=== PATIENT | male | born 1985 | race Caucasian/White ===

== ENCOUNTER 2019-09-01 06:56 | Emergency (ER) | payer OTHER, SELFPAY ==
--- NOTE | ~2019-09-01 | CT_ITS ---
EXAMINATION: CT abdomen pelvis w con DATE: 09/01/2019 08:08 INDICATION: Right flank pain. TECHNIQUE: Computed tomography (CT) of the abdomen and pelvis was performed with 100 mL Omnipaque-350 intravenous contrast. Automated exposure control and iterative reconstruction technique were employe d. The dose-length product was 496.49 mGy-cm. COMPARISON: None FINDINGS: Lung bases are clear. Heart size is normal. No pericardial or pleural effusion. Liver, gallbladder, s pleen, pancreas, bilateral adrenal glands and left kidney are normal. 1 mm at least partially obstruc ting stone at the right ureterovesicular junction. There is mild right hydroureteronephrosis and luis yed right nephrogram. Bowels including the appendix are normal. No free intraperitoneal gas or fluid. Latter is normal. Left testis is retracted to the caudal aspect of the left inguinal canal. No patho logically enlarged abdominal or pelvic lymphadenopathy. Bones are unremarkable. IMPRESSION: 1. At least partially obstructing 1 mm stone at the right ureterovesicular junction with mild right h ydroureteronephrosis and delayed right nephrogram. Reviewed, dictated and finalized at location A. IMPRESSION: 1. At least partially obstructing 1 mm stone at the right ureterovesicular junc tion with mild right hydroureteronephrosis and delayed right nephrogram.
[2019-09-01 07:04] VITALS: BP 135/80; PULSE 60; RESP 16; TEMP 36.6; O2SAT 100
--- NOTE | 2019-09-01 07:18 | ED.ABDPAIN ---
HPI - Abdominal Pain General Chief Complaint: Abdominal Pain Stated Complaint: kidney stone Time Seen by Provider: 09/01/19 07:15 History of Present Illness HPI narrative: Patient presents with right flank pain for hour and a half. He was dropped off by his and children. He had a kidney stone in 2015. This is similar pain. He gauges at 9 out of 10. He has some nausea but no vomiting. He has not been sick recently. He denies fever. MD elicited complaint: flank pain Pertinent past history: kidney stones Onset (ago): hour(s) Pain Consistency: constant Location: RLQ Severity: severe Pain scale (0-10): 9 Radiation: R flank Exacerbating factors: movement Relieving factors: nothing Related Data Allergies Allergy/AdvReac Type Severity Reaction Status Date / Time bupropion [From Wellbutrin] Allergy Seizure Verified 09/01/19 07:08 tramadol Allergy Seizure Verified 09/01/19 07:08 Review of Systems Review of Systems: Narrative: CONSTITUTIONAL: Denies fever, chills, or sweats. EYES: Denies visual changes, redness, or discharge. ENT: Denies rhinorrhea, congestion, sore throat, or otalgia. CARDIOVASCULAR: Denies chest pain, palpitations, or edema. RESPIRATORY: Denies cough or dyspnea. GASTROINTESTINAL: He has abdominal pain, nausea, but no vomiting, or diarrhea. GENITOURINARY: Denies dysuria or hematuria. SKIN: Denies rash or itching. MUSCULOSKELETAL: Denies back pain, joint pain, or myalgia. NEUROLOGIC: Denies headache, numbness, or weakness. PSYCHIATRIC: Denies anxiety or depression. [facility] Past Medical History Medical History (Updated 09/01/19 @ 09:05 by Michelle Chaidez MD) Anxiety Depression Kidney stones Exam Narrative: Exam Narrative: GENERAL: Young man in moderate distress. Feels cool. HEAD: Normocephalic, atraumatic. EYES: PERRLA and EOMI. ENT: Nares clear, no rhinorrhea or epistaxis. Mucous membranes moist. NECK: Supple. CHEST: Clear to auscultation. No respiratory distress. HEART: Regular rate and rhythm. No murmur heard. Normal peripheral pulses. ABDOMEN: Soft, nontender, nondistended, normal active bowel sounds. EXTREMITIES: Normal range of motion. No edema. SKIN: Warm, dry, no rash. NEURO: No focal deficits. Alert and oriented x3. PSYCH: Normal mood and affect. Course Reevaluation(s) Reevaluation #1: Went in to tell the patient about his stone. 1 mm. 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 I recommended that he wait to be sure he is passed a stone. His pain is under good control. Will be discharged home. Date: 09/01/19 Time: 08:35 Consultations Consultation #1: Call Dr. Garrido and he accepts the patient for outpatient evaluation. Date: 09/01/19 Time: 09:49 Vital Signs Vital signs: Vital Signs Temperature 97.8 F 09/01/19 07:04 Pulse Rate 60 09/01/19 07:04 Respiratory Rate 16 09/01/19 07:04 Blood Pressure 135/80 09/01/19 07:04 Pulse Oximetry 100 09/01/19 07:04 Temperature 97.8 F 09/01/19 07:04 Pulse Rate 62 09/01/19 08:18 Respiratory Rate 22 H 09/01/19 08:18 Blood Pressure 126/80 09/01/19 08:18 Pulse Oximetry 100 09/01/19 08:18 MDM - Abdominal Pain Differential Diagnosis Differential diagnosis: Likely calculus of kidney Medical Records Attestation: I reviewed the patient's medical records. Lab Data Attestation: I reviewed the patient's lab results. Result diagrams: 09/01/19 07:18 09/01/19 07:18 Labs: Lab Results 09/01/19 09/01/19 Range/Units 07:18 07:18 WBC 9.9 (4.5-10.0) K/mm3 RBC 5.59 (4.6-6.20) M/mm3 Hgb 16.6 (14.0-18.0) g/dL Hct 48.3 (42.0-52.0) % MCV 86.4 (80-100) fl MCH 29.7 (26-34) pg MCHC 34.4 (32-36) g/dl RDW 13.2 (11.5-14.5) % Plt Count 310 (150-375) k/mm3 MPV 11.9 H (7.4-10.4) fl Immature Gran % (Auto) 0.3 (0-0.5) % Neut % (Auto) 47.0 (45.5-73.1) % Lymph % (Auto) 41.9 (18.3-44.2) % Gray % (Auto) 9.4 H (2.6-8.5) % Eos %
[2019-09-01 07:24] LABS: Basophils Percent Auto 0.4 % (0.2-1.2); Eosinophils Absolute Auto 0.1 K/mm3 (0-0.3); Hematocrit 48.3 % (42.0-52.0); Hemoglobin 16.6 g/dL (14.0-18.0); Immature Granulocyte Absolute 0.03 K/mm3 (0.00-0.031); Immature Granulocyte Percent A 0.3 % (0-0.5); Lymphocytes Absolute Auto 4.16 K/mm3 (0.9-3.2); Lymphocytes Percent Auto 41.9 % (18.3-44.2); Mean Corpuscular HGB Conc 34.4 g/dl (32-36); Mean Corpuscular Hemoglobin 29.7 pg (26-34); Mean Corpuscular Volume 86.4 fl (80-100); Mean Platelet Volume 11.9 fl (7.4-10.4); Monocytes Absolute Auto 0.9 K/mm3 (0.1-0.6); Monocytes Percent Auto 9.4 % (2.6-8.5); Neutrophils Absolute Auto 4.7 K/mm3 (1.3-6.7); Platelet Count Result 310 k/mm3 (150-375); Red Blood Count 5.59 M/mm3 (4.6-6.20); Red Cell Distribution Width 13.2 % (11.5-14.5); White Blood Count 9.9 K/mm3 (4.5-10.0)
[2019-09-01] MEDS: ONDANSETRON INJ 4 MG/2 ML VIAL IV PUSH (07:24)
[2019-09-01] MEDS: SODIUM CHLORIDE 0.9% IV 1,000 ML 999 ML IV CONT (07:24)
[2019-09-01] MEDS: MORPHINE SULFATE 4 MG/ML INJ IV PUSH (07:25)
[2019-09-01] MEDS: TAMSULOSIN HCL 0.4 MG CAPSULE PO (07:30)
[2019-09-01 07:32] VITALS: BP 122/97; PULSE 75; RESP 28; O2SAT 99
[2019-09-01] MEDS: HYDROMORPHONE HCL 1 MG/ML INJ 0.5 MG IV PUSH ×2 (07:35→08:18)
--- NOTE | 2019-09-01 07:37 | PC.NURSE ---
Pt attempting to void, unable. IVF increased again as pain decreased.
[2019-09-01 07:39] LABS: Blood Urea Nitrogen 14 mg/dL (9-20); Calcium 9.5 mg/dL (8.4-10.2); Carbon Dioxide 25 mmol/L (22-30); Chloride 103 mmol/L (98-107); Estimated Glomerular Filt Rate > 60; Glucose 142 mg/dL (75-110); Potassium 3.1 mmol/L (3.4-5.0); Sodium 139 mmol/L (137-145)
--- NOTE | 2019-09-01 07:39 | PC.NURSE ---
Pt howling out in pain it's not even in my peehole , reports worsening pain in right flank that radiates to right groin. IVF slowed down, pt diaphoretic, Dr. Chaidez aware, orders received.
--- NOTE | 2019-09-01 07:53 | PC.NURSE ---
To CT via stretcher.
--- NOTE | 2019-09-01 08:12 | PC.NURSE ---
Pt c/o worsening pain upon return from CT. Note 800cc IVF infused. Pt c/o nausea as well. IVF slowed down in attempt to decrease pain.
[2019-09-01 08:18] VITALS: BP 126/80; PULSE 62; RESP 22; O2SAT 100
--- NOTE | 2019-09-01 08:22 | PC.NURSE ---
Pt continues to attempt to void without success.
--- NOTE | 2019-09-01 08:39 | PC.NURSE ---
Pt appears to have some relief at present, resting on stretcher. Denies needs at present.
[2019-09-01 10:18] LABS: Add Urine Microscopic? YES; Appearance Urine Clear (Clear); Bacteria Urine Trace /hpf; Bilirubin Urine Negative (Negative); Blood Urine 2+ (Negative); Color Urine Yellow (Yellow); Glucose Urine UA Negative (Negative); Ketones Urine 1+ mg/dL (Negative); Leukocyte Esterase Ur Negative LEU/UL (Negative); Mucus Urine Few /lpf; Nitrate Urine Negative (Negative); Protein Urine 1+ mg/dL (Negative); Urobilinogen Urine Negative mg/dL (<2.0); WBC Urine 0-3 /hpf
[2019-09-01 10:26] LABS: Specific Grav Ur > 1.060 (1.001-1.035)
[2019-09-01 10:49] VITALS: BP 118/56; PULSE 67; RESP 16; O2SAT 100
== END 2019-09-01 10:38 | disposition home or self-care (01) ==
PROVIDERS: Emergency Provider Emergency Medicine
DX: N13.2 Hydronephrosis with renal and ureteral calculous obstruction (principal)
CPT/HCPCS: 36415; 74177; 80048; 81001; 85025; 96361; 96365; 96375; 96376; 99284; A9270; J0696; J1170; J2270; J2405; J7030; Q9967